=== PATIENT | male | born 1995 | race Caucasian/White ===

== ENCOUNTER 2022-05-23 13:44 | Emergency (ER) | payer MEDICAID ==
[~2022-05-23] VITALS: Ht 180.3 cm; Wt 74.4 kg
[2022-05-23] MEDS ORDERED: HYDR-3927 PO (15:30)
--- NOTE | 2022-05-23 15:30 | NUR ---
Patient is a 27-year-old male with past medical history of kidney stones presenting to the ED for evaluation of moderate left flank pain. Patient states that pain is similar to previous episodes of kidney stones and is presenting to the ED for symptomatic treatment. He otherwise denies fevers, chills, nausea, vomiting, abdominal pain, dysuria, hematuria, or other symptoms at this time.
[2022-05-23 15:32] VITALS: BP_SYST 133
--- NOTE | 2022-05-23 15:32 | NUR ---
ER IN TRIAGE examining patient.
--- NOTE | 2022-05-23 15:35 | NUR ---
Patient given written and verbal discharge instructions and verbalizes understanding. ER MD discussed with patient the results and treatment provided. Patient in stable condition. ID arm band removed. Rx of NORCO given. Patient educated on pain management and to follow up with PMD. Pain Scale 0/10 Opportunity for questions provided and answered. Medication side effect fact sheet provided.
[2022-05-23 15:36] VITALS: BP_SYST 133
== END 2022-05-23 15:36 | disposition home or self-care (01) ==
LOC: SED 13:44
DX: N20.0 Calculus of kidney (principal); R10.9 Unspecified abdominal pain; Z79.899 Other long term (current) drug therapy
CPT/HCPCS: 99283

== ENCOUNTER → 2022-06-13 | Emergency (ER) | payer MEDICAID ==
[~2022-06-13] VITALS: Ht 180.3 cm; Wt 77.1 kg
[~2022-06-13] MED LIST: HYDR-3917 PO; HYDR-3927 PO; KETOROLAC TROMETHAMINE 60 MG/2 ML VIAL IM ONE
[2022-06-13 19:22] VITALS: BP_SYST 133
[2022-06-13 20:54] LABS: BILIRUBIN,URINE NEGATIVE (NEGATIVE); BLOOD, URINE 3+ (NEGATIVE); CLARITY/URINE CLEAR (CLEAR); GLUCOSE,URINE NEGATIVE (NEGATIVE); KETONES,URINE NEGATIVE (NEGATIVE); LEUKOCYTE ESTERASE ,URINE NEGATIVE (NEGATIVE); NITRITE, URINE NEGATIVE (NEGATIVE); PH,URINE 6.5 (5.0-8.0); PROTEIN URINE NEGATIVE (NEGATIVE); UROBILINOGEN,URINE 0.2 (0.2-1.0)
[2022-06-13 20:57] LABS: COLOR,URINE STRAW (YELLOW)
[2022-06-13 21:17] LABS: BACTERIA,URINE FEW /HPF (None Seen); WBC,URINE 0-3 /HPF (0-3)
[2022-06-13 21:18] LABS: MUCUS,URINE None Seen /LPF (None Seen)
[2022-06-14 22:00] VITALS: BP_SYST 128
== END | disposition home or self-care (01) ==
LOC: SED 19:03
DX: N23 Unspecified renal colic (principal); R31.9 Hematuria, unspecified; R11.0 Nausea; F17.210 Nicotine dependence, cigarettes, uncomplicated; Z79.899 Other long term (current) drug therapy
CPT/HCPCS: 99283; 81000; 96372; J1885